=== PATIENT | female | born 1940 | race Caucasian/White ===

== ENCOUNTER → 2024-11-29 | Outpatient (CLI) | payer MEDICARE, MEDICAID, SELFPAY ==
--- NOTE | 2024-11-29 14:00 | FLU_PTH ---
PATIENT: QUYEN MIKE LOC: [facility] U#:[id number] AGE/SX: 84/F ROOM: RE11/29/[address]: Dr. Flako Chung MD : 1940 BED: DIS: 11/29/2024 SPEC #: [id number] RECD: 11/29/24 15:32 STATUS: KHALIF REQ #: [id number] CARLITO: 11/29/24 14:[address]: Flako Chung DEPT: CYTOLOGY RECD BY: Domonique Espino ENTERED: 11/30/24 10:23 SP TYPE: Fluid OTHR DR: Dr. Zachariah Celaya MD Tissues: A - Thyroid gland, NOS B - Thyroid gland, NOS Procedures: Special Stain Group II Surgery Specimen Level IV Cytospin Fluid Cytology Other HEADER OPERATION: Fine needle aspiration of right thyroid mass PRE-OP DIAGNOSIS: Right thyroid mass TISSUE SUBMITTED: A- Right thyroid mass fluid, B- Right thyroid mass slides DIAGNOSIS CYTOLOGY A. Right thyroid mass fluid, fine needle aspiration (cytospins and cellblock): Consistent with benign follicular/colloid nodule, Altha Category II. Adequate for evaluation. See comment. B. Right thyroid mass, fine needle aspiration (smears): Consistent with benign follicular/colloid nodule, Altha Category II. Adequate for evaluation. See comment. SJ.mr 12/01/2024 COMMENT A, B. The specimens are cellular. Findings may represent adenomatoid nodule. Correlation with clinical, radiologic findings and appropriate follow-up are necessary. he Altha System for thyroid diagnostic categorization was used in the evaluation of this case. CYTOLOGY STUDY Slides are reviewed. CYTOLOGY GROSS A. Received is 30 ml of red-cloudy fluid labeled with the patient's name and and designated per the requisition as Right thyroid mass. Submitted for cytology preparation including cell block. B. Received are 4 smears labeled with the patient's name and designated per the requisition as Right thyroid mass. Submitted for staining. Mr 11/30/2024 TC:5 CPT: [id number]
== END | disposition home or self-care (01) ==
PROVIDERS: PCP Family Medicine; Referring Provider Surgery; Visit Provider Surgery
DX: E04.1 Nontoxic single thyroid nodule (principal)
CPT/HCPCS: 88108; 88161; 88305; 88313